=== PATIENT | male | born 1980 | race African-American/Black ===

== ENCOUNTER 2017-01-24 04:22 | Emergency (ER) | payer SELFPAY ==
[~2017-01-24] VITALS: Ht 188 cm; Wt 136.4 kg
[2017-01-24 04:26] VITALS: BP 131/84; PULSE 58; RESP 14; O2SAT 97
--- NOTE | 2017-01-24 04:57 | ED.REPORT ---
HPI-Extremity Problem Upper Date of Service Jan 24, 2017 ED Provider: Carlos Smith M.D Pt is a 36 year old male with a history of left eye blindness who presents to the ED complaining of intermittent right hand numbness onset 1 week ago. He c/o associated intermittent right hand pain and swelling. He reports that he was handcuffed 1 week ago by the police, and he thinks that his symptoms are related to being handcuffed. He states that he was referred to the ED by his PCP if he continued experiencing his symptoms Nursing Notes Stated Complaint: RT HAND PAIN/INJURY Chief Complaint: Extremity Trauma Nursing Notes Reviewed: Yes Allergies: Coded Allergies: No Known Allergies (Unverified , 01/24/17) Scheduled Famotidine (Pepcid) 20 Mg Tablet 20 MG PO BID Scheduled PRN Naproxen (Naprosyn) 500 Mg Tablet 500 MG PO BID PRN PRN For Pain General Time Seen by MD: 04:57 Chief Complaint Hand injury right Hx Obtained From: Patient Arrived By: Walk-in Onset Occurred: 1 week ago Symptom Duration: Intermittent Location: : Hand right Quality: Painful Severity: Current: Moderate Severity: Maximum: Moderate Recent Healthcare: Recent doctor visit Similar Sx Previous: Yes Past Medical History Past Medical History Left eye blindness Past Surgical History Left eye Smoking History Unknown if Ever Smoker Social History Alcohol Use: "Social" Drug Use: THC Ambulatory Status Independent Review of Systems Constitutional: Denies: Fever Musculoskeletal: Reports: Extremity pain, Extremity swelling Neurologic: Reports: Numbness Complete sys rev & neg: except as marked. Physical Exam Initial Vital Signs Vital Signs (First) Date Time Temp Pulse Resp B/P Pulse Ox O2 Delivery O2 Flow Rate FiO2 01/24/17 04:26 37 58 14 131/84 97 Room Air Initial VS: Reviewed Head / Eyes: Atraumatic, Normocephalic Neck: Supple, Full range of motion Respiratory: Breath sounds normal, Clear to auscultation, No respiratory distress Cardiovascular: Regular rate & rhythm, Heart sounds normal, Intact distal pulses Abdomen / GI: Soft, Non-tender Lower Extremities: Vascular intact, Neuro intact Skin: Warm, Dry, No cyanosis Neurologic: Alert, Oriented, Nonfocal Psychiatric: Mood/affect normal, Behavior normal General/Constitutional: Awake, Alert Wrist / Hand: Neurologic intact, Vascular intact Subjective decreased sensation distribuation of ulnar nerve Interpretation & Diagnostics X-Ray Interpretation Xray Interpretation: Negative X-Ray Ordered: Hand right Interpretation / Wet Read by: Wet read ED physician Re-Eval/Medical Decision Med Decision/Clinical Course 36-year-old with persistent tingling in the ulnar nerve distribution after being handcuffed. Advised to come in by clinic staff for a first was evaluated, if his symptoms were rather weak. He is having trouble sleeping tonight because of tingling and discomfort. He has subjective decreased sensation but no other findings. X-rays negative. This appears to be a pressure-induced neuropraxis, which should resolve. Single dose Decadron and cock-up splint given. Elevation and rest emphasized. Naprosyn and Pepcid twice a day. Discharged in stable condition. Source of Hx: Old records Re-Evaluation/Progress : Time of Eval: 05:00 Re-Evaluation/Progress Note: Informed pt of plan for discharge. Pt understands and agrees with plan for discharge. F/U instructions and RTER warnings given. All questions addressed. Counseled Regarding: Diagnosis, Need for follow-up, When/why to return to ED Discharge & Departure Impression: Primary Impression: Neuropraxia of right ulnar nerve Disposition: Home Discharge Condition All VS Reviewed: Yes Condition: Stable Additional Instructions: This set of symptoms is entirely consistent with pressure on the nerve, and likely the result of handcuffs. 80% of these and More will resolve over time, but it may take many weeks. Wear the wrist splint timekeeper for a week to ten days, then at night at least for another two weeks. Naprosyn twice daily. Elevate whenever possible. Pepcid twice daily as long as you are taking Naprosyn. Follow-up with your doctor in the office. Return if any immediate issues. Referrals: MARIANA (PCP) Scribe Attestation Portions of this note were transcribed by Barbara Day. I, Dr. Smith personally performed the history, physical exam and medical decision-making; I reviewed and confirmed the accuracy of the information in the transcribed note. Signed by: Efrain Ceballos, 01/24/17. copies to: Carlos Ashford MD Jan 24, 2017 04:57 Barbara Sands Jan 24, 2017 05:21
[2017-01-24] MEDS ORDERED: Dexamethasone 20 mg/2 mL Oral Solution PO ONE (05:05)
[2017-01-24] MEDS ORDERED: NAPR500T PO (05:07)
[2017-01-24] MEDS ORDERED: FAMO20T PO (05:07)
[2017-01-24 05:11] VITALS: BP 135/81; PULSE 63; RESP 14; O2SAT 99
--- NOTE | 2017-01-24 08:40 | DRSVH ---
PROCEDURE: X-RAY RIGHT WRIST COMPLETE, MINIMUM THREE VIEWS ([id number]) INDICATIONS: pain, tingling p handcuff application TECHNIQUE: 4 views of the wrist were acquired. COMPARISON: None. FINDINGS: Bones: No fractures or dislocations. No suspicious bony lesions. Scaphoid view: Negative for fracture Soft tissues: No suspicious soft tissue calcifications. IMPRESSION: Normal wrist, no fractures identified. Dictated by: Sarthak Parmar M.D. on 01/24/2017 at 8:36 Approved by: Sarthak Parmar M.D. on 01/24/2017 at 8:38
--- NOTE | 2017-01-24 08:41 | DRSVH ---
PROCEDURE: X-RAY RIGHT HAND, MINIMUM THREE VIEWS ([id number]) INDICATIONS: pain, tingling p handcuff application TECHNIQUE: 3 views of the hand(s) acquired. COMPARISON: None. FINDINGS: Bones: No fractures or dislocations. Carpal bones are normally aligned. No suspicious bony lesions . Soft tissues: No suspicious soft tissue calcifications. IMPRESSION: Normal hand Dictated by: Sarthak Parmar M.D. on 01/24/2017 at 8:38 Approved by: Sarthak Parmar M.D. on 01/24/2017 at 8:39
== END 2017-01-24 05:12 | disposition home or self-care (01) ==
LOC: SED 04:22
DX: G56.21 Lesion of ulnar nerve, right upper limb (principal); H54.42 Blindness, left eye, normal vision right eye